=== PATIENT | female | born 1970 | race Caucasian/White ===

== ENCOUNTER 2025-02-18 12:56 | Outpatient (AMB) | payer OTHER, SELFPAY ==
--- NOTE | 2025-02-18 13:08 | MHC.PC.OV ---
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 Intake Note: New patient visit Lamination Operator Required: No Allergies No Known Allergies Allergy (Verified 02/18/25 13:13) Tobacco use date assessed: 02/18/25 Dental Screening Dental Screen Date: 02/18/25 Did you have a dental visit in the last 12 months?: Yes Did you have a dental problem in the last 6 months where you did not have access to dental care?: No Was dental information given to patient?: Patient has dentist HPI HPI Comments History of Present Illness Details 54 year old female with past medical history of PMB, uterine polyp, abnormal mammogram presenting to [facility] &CPE Transfer from [facility] No acute concerns Mammo 08/2024, 10/2024 follow up Mirta Hodge. s/p hysteroscopy, D&C, polypectomy 05/2024 Shingles 11/2024 Td 03/2018 ROS CONSTITUTIONAL: Denies weight loss, fever and chills. HEENT: Denies changes in vision and hearing. RESPIRATORY: Denies SOB and cough. CV: Denies palpitations and CP GI: Denies abdominal pain, nausea, vomiting and diarrhea. : Denies dysuria and urinary frequency. MSK: Denies new myalgia and joint pain. SKIN: Denies rash and pruritus. NEUROLOGICAL: Denies headache PSYCHIATRIC: Denies recent changes in mood. PHYSICAL EXAM: GENERAL: Alert and oriented x 3. NAD EYES: EOMI. Anicteric. HENT: Moist mucous membranes. Upper cervical b/l LN, upper left and right sided thryoid nodules LUNGS: Clear to auscultation bilaterally. CARDIOVASCULAR: Regular rate and rhythm. No murmur. No JVD. ABDOMEN: Soft, non-tender +bs EXTREMITIES: No edema. Non-tender. SKIN: No rashes or lesions. Warm. NEUROLOGIC: No focal neurological deficits. CN II-XII grossly intact PSYCHIATRIC: Cooperative. Appropriate mood and affect [facility] Surgical History (Updated 02/18/25 @ 11:51 by Seda Carrera CMA) No pertinent past surgical history Family History (Updated 02/18/25 @ 11:52 by Seda Carrera CMA) Mother Cancer of oral cavity Brother Cancer of salivary gland Father Diabetes Social History Housing: House Patient Tobacco Use Status: Never used Tobacco e-Cigarette/Vaping Use: Never Used Second Hand Smoke Exposure: No service: No Current occupational status: employed Current occupation: language assistant Current occupational exposures/hazards: No Cognitive needs: No Hearing needs: No Vision needs: No Questionnaire PHQ-9 Over the last 2 weeks, how often have you been bothered by any of the following problems? 1. Little interest or pleasure in doing things: not at all 2. Feeling down, depressed, or hopeless: not at all 3. Trouble falling or staying asleep, or sleeping too much: not at all 4. Feeling tired or having little energy: not at all 5. Poor appetite or overeating: not at all 6. Feeling bad about yourself - or that you are a failure or have let yourself or your family down: not at all 7. Trouble concentrating on things, such as reading the newspaper or watching television: not at all 8. Moving or speaking so slowly that other people could have noticed. Or the opposite - being so fidgety or restless that you have been moving around a lot more than usual: not at all 9. Thoughts that you would be better off or of hurting yourself in some way: not at all Total score: 0 Depression Screening Interpretation: Negative Depression Screening Done: Yes 20882 - PHQ-9 Billing: Yes Source: Developed by Drs. Kale Balderas, Natalya Rae, Vlad Sin and colleagues, with an educational miah from [email or web address]. Thrive Questionnaire I am a: Patient What is your living situation today?: I have a steady place to live Within the past 12 months, did the food you bought not last and you didn't have the money to get more?: Never true Within the past 12 months, did you worry whether your food would run out before you got money to buy more?: Never true Do you have trouble paying for medicines?: No Do you have trouble getting transportation to medical appointments?: No Do you have trouble paying your heating and electricity bill?: No Do you have trouble taking care of your child, family member or friend?: No Do you have trouble with day-to-day activities such as bathing, preparing meals, shopping, managing finances, etc.?: No Are you currently unemployed and looking for a job?: No Are you interested in more education?: No Please select the resources that you would like help with: None Currently or been in a relationship where the following occur: No concerns reported THRIVE Score: 0 AUDIT C Alcohol Use Questionnaire (AUDIT-C) 1. How often do you have a drink containing alcohol?: Never 3. How often do you have six or more drinks on one occasion?: Never Total Score: 0 MARIEL-7 AMB Questionnaire MARIEL-7 Date MARIEL - 7 assessed: 02/18/25 Feeling nervous, anxious, or on edge: 0 = Not at all Not being able to stop or control worryin = Not at all Worrying too much about different things: 0 = Not at all Trouble relaxin = Not at all Being so restless that it is hard to sit still: 0 = Not at all Becoming easily annoyed or irritable: 0 = Not at all Feeling afraid as if something awful might happen: 0 = Not at all Total MARIEL-7 score (0-4 normal; 5-9 mild; 10-14 moderate; 15-21 severe): 0 Source: Developed by Drs. Kale Balderas, Natalya Rea, Vlad Sin and colleagues, with an educational miah from [email or web address]. MARIEL-7 Assessment Billing MARIEL-7 Assessment Tool: MARIEL-7 Assessment 12154 Physical exam (Primary Care) Vital Signs: Last Vital Signs Temp 98.1 F 02/18/25 13:11 Pulse 72 02/18/25 13:11 Resp 14 02/18/25 13:11 BP 152/94 H 02/18/25 13:19 Pulse Ox 100 02/18/25 13:11 Oxygen Delivery Method Room Air 02/18/25 13:11 BMI result Body Mass Index 33.5 Tobacco/Smoking Status: Tobacco use Status Tobacco use date assessed 02/18/25 02/18/25 13:21 Patient Tobacco Use Status Never used Tobacco 02/18/25 13:21 e-Cigarette/Vaping Use Never Used 02/18/25 13:21 PHQ-9: PHQ-9 Score PHQ-9: Total score 0 02/18/25 13:36 Depression Screening Interpretation: Negative Currently or been in a relationship where the following occur: No concerns reported Coding Level of Care Code New Pt Prev Care 40-64y(65752) Diagnoses Physical exam Z00.00 Uterine polyp N84.0 Post-menopausal bleeding N95.0 Thyroid nodule E04.1 Additional Codes MARIEL-7 Assessment Billing - MARIEL-7 Assessment Tool: MARIEL-7 Assessment 23151 ([id number]) PHQ-9 - 95536 - PHQ-9 Billing: Yes ([id number]) Assessment & Plan Assessment & Plan (1) Physical exam: Code(s): Z00.00 - Encounter for general adult medical examination without abnormal findings (2) Uterine polyp: Code(s): N84.0 - Polyp of corpus uteri Category: Medical (3) Post-menopausal bleeding: Code(s): N95.0 - Postmenopausal bleeding Category: Medical (4) Thyroid nodule: Code(s): E04.1 - Nontoxic single thyroid nodule Category: Medical Plan 54 year old female to establish care & CPE Past medical, surgical, social & family history reviewed Preventive measures for age discussed Following with certified medical transcriptionist, mammo is utd Cologuard and labs ordered Orders: Orders Lipid Panel Today N84.0 - Polyp of corpus uteri, N95.0 - Postmenopausal bleeding, R35.89 - Other polyuria, Z13.0 - Encounter for screening for diseases of the blood and blood-forming organs and certain disorders involving the immune mechanism, Z13.220 - Encounter for screening for lipoid disorders, Z13.228 - Encounter for screening for other metabolic disorders, Z76.89 - Persons encountering health services in other specified circumstances Complete Blood Count Auto Diff Today N84.0 - Polyp of corpus uteri, N95.0 - Postmenopausal bleeding, R35.89 - Other polyuria, Z13.0 - Encounter for screening for diseases of the blood and blood-forming organs and certain disorders involving the immune mechanism, Z13.220 - Encounter for screening for lipoid disorders, Z13.228 - Encounter for screening for other metabolic disorders, Z76.89 - Persons encountering health services in other specified circumstances Comprehensive Met. Panel Today N84.0 - Polyp of corpus uteri, N95.0 - Postmenopausal bleeding, R35.89 - Other polyuria, Z13.0 - Encounter for screening for diseases of the blood and blood-forming organs and certain disorders involving the immune mechanism, Z13.220 - Encounter for screening for lipoid disorders, Z13.228 - Encounter for screening for other metabolic disorders, Z76.89 - Persons encountering health services in other specified circumstances TSH reflex Free T4 Today N84.0 - Polyp of corpus uteri, N95.0 - Postmenopausal bleeding, R35.89 - Other polyuria, Z13.0 - Encounter for screening for diseases of the blood and blood-forming organs and certain disorders involving the immune mechanism, Z13.220 - Encounter for screening for lipoid disorders, Z13.228 - Encounter for screening for other metabolic disorders, Z76.89 - Persons encountering health services in other specified circumstances Hemoglobin A1c Today N84.0 - Polyp of corpus uteri, N95.0 - Postmenopausal bleeding, R35.89 - Other polyuria, Z13.0 - Encounter for screening for diseases of the blood and blood-forming organs and certain disorders involving the immune mechanism, Z13.220 - Encounter for screening for lipoid disorders, Z13.228 - Encounter for screening for other metabolic disorders, Z76.89 - Persons encountering health services in other specified circumstances US thyroid Today E04.1 - Nontoxic single thyroid nodule Referrals Cologuard Test Z12.11 - Encounter for screening for malignant neoplasm of colon, Z12.12 - Encounter for screening for malignant neoplasm of rectum
[2025-02-18 13:11] VITALS: BP 144/96; PULSE 72; RESP 14; TEMP 36.7; O2SAT 100; BMI 33.5
[2025-02-18 13:19] VITALS: BP 152/94
--- OUTSIDE RECORDS SUMMARY | 2025-02-18 18:37 | XMS_ITS | Clinical Summary ---
Author Organization [email or web address] Address [address] [place] [address] [address] [place] [address] Care Team Providers Care Mailing Clerk Name Role Phone Unavailable Primary Care Provider Unavailabl e Allergies No known active allergies Medications No known medications Social History Tobacco Use Types Packs/Day Years Used Date Smoking Tobacco: Never Passive Smoke Exposure: Never Smokeless Tobacco: Never Tobacco Cessation:Counseling Given: No Alcohol Use Standard Drinks/Week Comments Never 0 (1 standard drink = 0.6 oz pur e alcohol) Comments Unknown Sex and Gender Information Value Date Recorded Sex Assigned at Choose not to disclose 8:54 AM EST Legal Sex Female 5:36 PM EDT Gender Identity Choose not to disclose 8:54 AM EST Sexual Orientation Choose not to disclose 2022 8:54 AM EST Last Filed Vital Signs Vital Sign Reading Time Taken Comments Blood Pressure 139/89 10/19/2024 4:02 PM EDT Pulse 76 10/19/2024 4:02 PM EDT Temperature - - Respiratory Rate - - Oxygen Saturation - - Inhaled Oxygen Concentration - - Weight - - Height - - Body Mass Index - - Plan of Treatment Upcoming Encounters Date Type Department Care Team (Late st Contact Info) Description 05/12/2025 4:00 PM EST Office Visit [facility] DENTAL [address] [place] [address] Elise Thomas Health Maintenance Due Date Last Done Comments CT Colonography 1969 Colonoscopy 1969 Colorectal Cancer Screening 1969 Depression Screening 1969 FIT DNA/Cologuard 1969 FIT 1969 FOBT 1969 HIV Screening 1969 Lipid Panel 1969 SDOH Screening 1969 Sigmoidoscopy 1969 Disability Screening 1969 Alcohol/Substance Use Screening 1981 Hepatitis C Screening 09/15/1987 Hepatitis B Vaccines (1 of 3 - 19+ 3-dose series) 1988 Pap Smear 1990 Cervical Cancer Screening 09/15/1999 HPV/Cotest 09/15/1999 Mammogram 2009 Pneumococcal Vaccine: 50+ Years (1 of 1 - PCV) 09/15/2019 Dental Oral Exam 09/17/2024 03/19/2024, 07/2022, 10/26/2021, Additional history exists Zoster Vaccines (2 of 2) 10/18/2024 08/23/2024 Dental X-Ray: Full Mouth 10/27/2024 022, 07/31/2016, 05/30/2009 COVID-19 Vaccine ( - 2024- season) 2024 07/28/2020, 06/30/2020 Influenza Vaccine (#1) 2024 Dental X-Ray: Bitewings 03/20/2025 03/19/19 25, 12/12/2022, 10/26/2021, Additional history exists Dental Prophylaxis 04/22/2025 10/19/2024, 0 03/19/2024, 07/17/2023, Additional history exists Tobacco Screening 10/19/2025 10/19/2024 DTaP/Tdap/Td Vaccines (2 - Td or Tdap) 03/24/2028 03/24/2018 RSV Patients and Patients Aged 60 years or older (1 - 1-dose 75+ series) 2044 HIB Vaccines Aged Out No longer eligi ble based on patient's age to complete this topic HPV Vaccines Aged Out No longer eligi ble based on patient's age to complete this topic Hepatitis A Vaccines Aged Out No long er eligible based on patient's age to complete this topic IPV Vaccines Aged Out No longer eligi ble based on patient's age to complete this topic Meningococcal B Vaccine Aged Out No l onger eligible based on patient's age to complete this topic Meningococcal Vaccine Aged Out No byron cass eligible based on patient's age to complete this topic RSV under 20 months Aged Out No longe r eligible based on patient's age to complete this topic Rotavirus Vaccines Aged Out No longer eligible based on patient's age to complete this topic Procedures Procedure Name Priority Date/Time Associated Diagnosis Comments Full PROPHYLAXIS - ADULT Routine 025 4:00 PM EDT BITEWINGS - 4 RADIOGRAPHIC IMAGES Routine 03/19/2024 4:00 PM EST PERIODIC ORAL EVALUATION - ESTABLISHED PATIENT Routine 03/19/2024 4:00 PM EST INTRAORAL - COMPLETE SERIES OF RADIOGRAPHIC IMAGES Routine 10/26/2021 12:00 AM EDT from Last 3 Months or Most Recently Relevant to Health Maintenance Insurance DENTAL - [facility]
--- OUTSIDE RECORDS SUMMARY | 2025-02-18 18:37 | XMS_ITS | Encounter Summary ---
Author Organization [employer] Address [address] [facility] [address] [place] [address] Care Team Providers Care Draw Hand Name Role Phone Unavailable Primary Care Provider Unavailabl e Encounter Details Date Type Department Care Team (Latest Contact Info) Description 10/16/2020 Abstract [facility] Dental, Provider, DDS Social History Tobacco Use Types Packs/Day Years Used Date Smoking Tobacco: Never Assessed Comments Unknown Sex and Gender Information Value Date Recorded Sex Assigned at Choose not to disclose 8:54 AM EST Legal Sex Female 5:36 PM EDT Gender Identity Choose not to disclose 8:54 AM EST Sexual Orientation Choose not to disclose 2022 8:54 AM EST documented as of this encounter Plan of Treatment Upcoming Encounters Date Type Department Care Team (Late st Contact Info) Description 05/12/2025 4:00 PM EST Office Visit [place] [facility] DENTAL [address] [place] [address] Elise Thomas documented as of this encounter Visit Diagnoses Not on filedocumented in this encounter
--- OUTSIDE RECORDS SUMMARY | 2025-02-18 18:37 | XMS_ITS | Encounter Summary ---
Author Organization [employer] Address [address] [facility] [address] [place] [address] Care Team Providers Care Flat Folding Machine Operator Name Role Phone Unavailable Primary Care Provider Unavailabl e Encounter Details Date Type Department Care Team (Latest Contact Info) Description 10/21/2018 [facility] Dental, Provider, DDS Social [...] Description 05/12/2025 4:00 PM EST Office Visit [place] [facility] DENTAL [address] [place] [address] Elise Thomas documented as of this encounter Visit Diagnoses Not on filedocumented in this encounter
--- OUTSIDE RECORDS SUMMARY | 2025-02-18 18:37 | XMS_ITS | Encounter Summary ---
Author Organization [employer] Address [address] [facility] [address] [place] [address] Care Team Providers Care Tnt Line Supervisor Name Role Phone Unavailable Primary Care Provider Unavailabl e Encounter Details Date Type Department Care Team (Latest Contact Info) Description 04/16/2018 [facility] Dental, Provider, DDS Social [...] Description 05/12/2025 4:00 PM EST Office Visit [place] [facility] DENT[facility] [address] [place] [address] Elise Thomas documented as of this encounter Visit Diagnoses Not on filedocumented in this encounter
--- OUTSIDE RECORDS SUMMARY | 2025-02-18 18:37 | XMS_ITS | Encounter Summary ---
Author Organization [employer] Address [address] [facility] [address] [place] [address] Care Team Providers Care Child Care Associate Name Role Phone Unavailable Primary Care Provider Unavailabl e Encounter Details Date Type Department Care Team (Latest Contact Info) Description 04/28/2019 Abstract [facility] Dental, Provider, DDS Social [...] Description 05/12/2025 4:00 PM EST Office Visit [place] [facility] DENT[facility] [address] [place] [address] Elise Thomas documented as of this encounter Visit Diagnoses Not on filedocumented in this encounter
== END 2025-02-18 13:39 | disposition home or self-care (01) ==
LOC: HO.HMCFM 12:57
PROVIDERS: PCP Internal Medicine; Visit Provider Internal Medicine
DX: Z00.00 Encounter for general adult medical examination without abnormal findings (principal); N84.0 Polyp of corpus uteri; N95.0 Postmenopausal bleeding; E04.1 Nontoxic single thyroid nodule

== ENCOUNTER 2025-02-18 12:56 | Outpatient (REF) | payer OTHER, SELFPAY ==
[2025-02-18 17:39] LABS: MANUAL DIFF FLAG NO
[2025-02-18 17:45] LABS: Hematocrit 41.3 % (37.0-47.0); Hemoglobin 14.6 g/dl (12.0-16.0); Imm Gran Abs Auto 0.03 X10*3/uL (0.00-0.03); Imm Gran Pct Auto 0.3 % (0.0-0.4); Lymphocytes Absolute Auto 2.5 X10*3/uL (1.2-4.9); Mean Corpuscular HGB Conc 35.4 g/dl (31.0-35.0); Mean Corpuscular Hemoglobin 32.4 pg (27.0-33.0); Mean Corpuscular Volume 91.6 fL (80.0-98.0); NRBC Abs Auto 0.000 X10*3/uL (0.0-0.012); NRBC Pct Auto 0.0 /100WBC (0.0-0.2); Platelet Count 299 X10*3/uL (160-400); Red Blood Count 4.51 X10*6/uL (4.20-5.50); White Blood Count 9.9 X10*3/uL (4.8-10.8)
[2025-02-18 18:01] LABS: Alanine Aminotransferase 30 U/L (0-31); Albumin Level 4.8 g/dL (3.5-5.0); Alkaline Phosphatase 91 U/L (39-117); Anion Gap 8 (12-20); Aspartate Amino Transferase 31 U/L (5-31); Blood Urea Nitrogen 11 mg/dL (9-16); Calcium 9.7 mg/dL (8.4-10.2); Carbon Dioxide 29 mmol/L (22-29); Chloride 106 mmol/L (96-108); Cholesterol 194 mg/dL (<200); Estimated Glomerular Filt Rate > 60; HDL Cholesterol 62 mg/dL (>40); Potassium 4.2 mmol/L (3.3-5.1); Sodium 139 mmol/L (135-145); Total Protein 7.9 g/dL (6.5-8.0); Triglycerides 86 mg/dL (<150)
== END 2025-02-18 12:57 | disposition home or self-care (01) ==
LOC: HO.WFDLDS 12:56
PROVIDERS: Visit Provider Internal Medicine
DX: Z00.00 Encounter for general adult medical examination without abnormal findings (principal); Z13.0 Encounter for screening for diseases of the blood and blood-forming organs and certain disorders involving the immune mechanism; Z13.220 Encounter for screening for lipoid disorders; Z13.228 Encounter for screening for other metabolic disorders; Z76.89 Persons encountering health services in other specified circumstances; N84.0 Polyp of corpus uteri; N95.0 Postmenopausal bleeding; R35.89 Other polyuria; E04.1 Nontoxic single thyroid nodule
CPT/HCPCS: 36415; 80053; 80061; 83036; 84443; 85025; 96127